=== PATIENT | male | born 1945 | race Caucasian/White ===

== ENCOUNTER 2024-06-15 13:19 | Emergency (ER) | payer OTHER ==
[2024-06-15] MEDS ORDERED: NA CHLORIDE 0.9% 100 ML ONE (13:31)
[2024-06-15] MEDS ORDERED: ALBUTEROL 2.5 MG/3 ML NEB SOL ONE (13:31)
[2024-06-15] MEDS ORDERED: CEFAZOLIN SODIUM 2 GM/VIAL ONE (13:31)
[2024-06-15] MEDS ORDERED: IPRATROPIUM BROM 0.5MG/2.5ML ONE (13:31)
[2024-06-15 14:01] LABS: Absolute Lymphocytes (CBC) 0.6 K/uL (0.7-4.9); Absolute Monocytes 1.3 K/uL (0.1-1.3); Absolute Neutrophil 5.3 K/uL (1.8-8.0); Basophils % 0.1 % (0-1.3); Eosinophils % 0.1 % (0-4.4); Hematocrit 42.1 % (39.6-49.0); Hemoglobin 14.1 g/dL (13.6-17.9); Lymphocytes % 8.9 % (15.3-44.8); MCH 34.5 pg (27.0-35.0); MCHC 33.6 g/dL (32.0-36.0); MCV 102.7 fL (80-100); MPV 9.7 fL (7.6-11.3); Monocytes % 17.8 % (3.3-12.3); Neutrophils % 73.1 % (41.7-73.7); Platelets 96 thou/uL (152-406); Red Cell Distribution Width 15.5 % (12.1-15.2)
[2024-06-15 14:19] LABS: Albumin 2.6 g/dL (3.4-5.0); Albumin/Globulin Ratio 0.6 (1.1-1.8); Anion Gap 10.9 mEq/L (5.0-15.0); Bilirubin Total 2.8 mg/dL (0.2-1.0); Globulin 4.2 g/dL (2.3-3.5); Potassium 3.9 mEq/L (3.5-5.1); Protein, Total 6.8 g/dL (6.4-8.2); Troponin High Sensitivity 10.5 pg/mL (<58.9)
--- NOTE | 2024-06-15 14:33 | RAD REPORT ---
EXAMINATION: ONE VIEW CHEST XR CLINICAL INDICATION: Male, 78 years old.,COUGH TECHNIQUE: Frontal chest projection is submitted. Examination is limited by patient positioning and t echnique. COMPARISON: 03/23/2024 FINDINGS: The lungs are well inflated. Bilateral costophrenic angle blunting suggesting small effusions. Underl shani subsegmental airspace opacities are stable. Appearance is stable. No pneumothorax. The heart is normal in size. IMPRESSION: Stable findings as above.
[2024-06-15] MEDS ORDERED: IBUPROFEN 200 MG TAB PO ONE (14:35)
[2024-06-15 14:42] LABS: Blood Morphology Comment NOT SEEN (NOT SEEN); Platelet Estimate DECR; White Blood Cell Scan OK (OK)
[2024-06-15] MEDS ORDERED: NA CHLORIDE 0.9% 1,000 ML ONE (14:43)
--- NOTE | 2024-06-15 15:02 | RAD REPORT ---
EXAM: CT CHEST, ABDOMEN AND PELVIS WITHOUT CONTRAST CLINICAL INDICATION: Male, 78 years old. [facility] MAIN ABD PAIN NO CONTRAST Bed Name: 5 TECHNIQUE: CT chest, abdomen and pelvis was performed, without IV contrast, as per department protoco l. Axial, sagittal and coronal reconstructions were obtained. One or more of the following dose reduction techniques were used: Automated exposure control, adjustment of the mA and/or kV according to the patient size, and/or iterative reconstruction. Unless otherwise specified, incidental findings do not require dedicated imaging follow-up. COMPARISON: 05/29/2024 and 03/20/2024 FINDINGS: The lack of intravenous contrast limits the sensitivity of this exam for evaluation of solid visceral organs, vascular structures, and retroperitoneum. Chest: LOWER NECK/CHEST WALL: Visualized thyroid gland and soft tissues are normal. LUNGS AND AIRWAYS: Airways are clear.Left basilar subsegmental airspace opacification with aortogram, and other areas of platelike peripheral atelectasis/scarring, stable. No suspicious nodules. PLEURA: Small bilateral pleural effusions larger on the left. No pneumothorax. Hemidiaphragms are nor merly positioned. MEDIASTINUM AND LYMPH NODES: No mediastinal mass or fluid collection. Normal size mediastinal, hilar, and axillary lymph nodes. Moderate hiatal hernia. Moderate lower esophageal varices. Ovoid cystic lesion in the posterior mediastinum right of midline, measuring 3.4 x 2.8 cm, stable. THORACIC AORTA: Normal caliber and configuration. PULMONARY ARTERIES: Normal caliber. HEART: Prosthetic aortic valve place. Left chest wall pacer/AICD present. Abdomen/Pelvis LIVER: Normal in size. Nodular contour and relative left lobe hypertrophy again seen. No focal lesion . Varicosities along the left sphenoid renal region and epigastrium are again appreciated. Umbilical vein recanalization. GALLBLADDER/BILE DUCTS: Marked gallbladder distention, with a 1.6 cm mineralized calculus near the ne ck, and some layering hyperdense material near the fundus. Pericholecystic fluid and mild gallbladder wall thickening.. PANCREAS: No mass, ductal dilation, or callie-pancreatic fluid. SPLEEN: Normal size. No focal lesion. ADRENALS: Normal; no mass. KIDNEYS AND URETERS: Normal size and contour. No hydronephrosis. GASTROINTESTINAL TRACT: Stomach is non-dilated. Small bowel has normal course and caliber. No colonic wall thickening or pericolonic inflammatory changes. PERITONEUM: Mild free fluid throughout both flanks. LYMPH NODES: No lymphadenopathy. ABDOMINAL AORTA AND OTHER VESSELS: Normal caliber aorta and IVC. URINARY BLADDER: Normal contour. REPRODUCTIVE ORGANS: No pathologic process. MUSCULOSKELETAL: Stable compression deformities at T12, L2, and L4. No other acute or suspicious osse ous abnormalities. ADDITIONAL FINDINGS: Penile implant in place. IMPRESSION: Cholelithiasis with diffuse gallbladder wall thickening and prominent distention. Please correlate cl inically for evidence of acute cholecystitis. New mild free ascites. Stigmata of cirrhosis and portal hypertension, trace bilateral effusions and underlying airspace opac ification suggesting atelectasis, and other incidental findings, are stable.
--- NOTE | 2024-06-15 15:24 | EDPHYS ---
Physician Documentation [facility] Name: Gigi Madison Jr Age: 78 yrs Sex: Male : 1945 Arrival Date: 06/15/2024 Time: 13:19 Bed 5 Private MD: ED Physician Al Frye HPI: 06/15 13:44 This 78 yrs old Male presents to ER via Ambulatory with complaints of Dizziness, sp3 General Weakness, Cough. 13:44 78-year-old male with history of liver cirrhosis with patient Dr. Thompson presents to the sp3 ED with chief complaint cough and generalized weakness. Patient had some epigastric pain last week and now has developed into more upper respiratory symptoms. Dr. Thompson is concerned about pneumonia and has asked us to admit him for further workup and IV antibiotics. Patient denies any chest pain, back pain, lower abdominal pain, rash, syncope, focal neurological deficit, fever, or any other signs or symptoms on ROS at this time.. Historical: - Allergies: 13:37 No Known Allergies; db - PMHx: 13:37 allergies; Cirrhosis of liver; CARDIAC; db - PSHx: 13:37 PACEMAKER; db - Immunization history:: Adult Immunizations unknown. - Infectious Disease History:: Denies. - Social history:: Smoking status: Patient denies any tobacco usage or history of. ROS: 13:45 Constitutional: Negative for fever, chills, and weight loss, Eyes: Negative for injury, sp3 pain, redness, and discharge, Neck: Negative for injury, pain, and swelling, Cardiovascular: Negative for chest pain, palpitations, and edema, Back: Negative for injury and pain, MS/Extremity: Negative for injury and deformity, Skin: Negative for injury, rash, and discoloration, Neuro: Negative for headache, weakness, numbness, tingling, and seizure, Psych: Negative for depression, anxiety, suicide ideation, homicidal ideation, and hallucinations, Allergy/Immunology: Negative for hives, rash, and allergies, Endocrine: Negative for neck swelling, polydipsia, polyuria, polyphagia, and marked weight changes, Hematologic/Lymphatic: Negative for swollen nodes, abnormal bleeding, and unusual bruising, 13:45 All other systems are negative, Exam: 13:45 Constitutional: This is a well developed, well nourished patient who is awake, alert, sp3 and in no acute distress. Head/Face: Normocephalic, atraumatic. Eyes: Pupils equal round and reactive to light, extra-ocular motions intact. Lids and lashes normal. Conjunctiva and sclera are non-icteric and not injected. Cornea within normal limits. Periorbital areas with no swelling, redness, or edema. ENT: Nares patent. No nasal discharge, no septal abnormalities noted. External auditory canals are clear. Oropharynx with no redness, swelling, or masses, exudates, or evidence of obstruction, uvula midline. Mucous membranes moist. Neck: Trachea midline, no thyromegaly or masses palpated, and no cervical lymphadenopathy. Supple, full range of motion without nuchal rigidity, or vertebral point tenderness. No Meningismus. Chest/axilla: Normal chest wall appearance and motion. Nontender with no deformity. No lesions are appreciated. Cardiovascular: Regular rate and rhythm with a normal S1 and S2. No gallops, murmurs, or rubs. Normal PMI, no JVD. No pulse deficits. Back: No spinal tenderness. No costovertebral tenderness. Full range of motion. Skin: Warm, dry with normal turgor. Normal color with no rashes, no lesions, and no evidence of cellulitis. MS/ Extremity: Pulses equal, no cyanosis. Neurovascular intact. Full, normal range of motion. Neuro: Awake and alert, GCS 15, oriented to person, place, time, and situation. Cranial nerves II-XII grossly intact. Motor strength 5/5 in all extremities. Sensory grossly intact. Cerebellar exam normal. Normal gait. Psych: Awake, alert, with orientation to person, place and time. Behavior, mood, and affect are within normal limits. 15:29 ECG was reviewed by the Attending Physician. EKG demonstrates normal sinus rhythm 87 sp3 bpm with scattered PVC and demand atrial pacer and nonspecific diffuse ST's ST changes. Vital Signs: 13:36 BP 101 / 69; Pulse 76; Resp 18; Temp 100.7; Pulse Ox 98% on R/A; Weight 83.46 kg; db Height 6 ft. 0 in. ; 16:04 BP 99 / 74; Pulse 72; Resp 18; Temp 97.6(A); Pulse Ox 99% on R/A; qf 16:38 BP 101 / 77; Pulse 80; Resp 17; Pulse Ox 98% on R/A; rs5 17:43 BP 123 / 71; Pulse 53; Resp 16; Temp 98.6; Pulse Ox 100% on R/A; qf 13:36 Body Mass Index 24.95 (83.46 kg, 182.88 cm) db MDM: 13:23 Patient medically screened. sp3 13:46 Data reviewed: vital signs, nurses notes, lab test result(s), EKG, radiologic studies. sp3 ED course: 78-year-old male with generalized weakness and now cough. Differential diagnosis includes pneumonia, bronchitis, CHF, ACS, biliary pathology that is worsening, among others. Workup will include chest x-ray, EKG, CT scan of the abdomen pelvis noncontrast and general labs. Disposition will be admission to Dr. Thompson service and cefepime will also be started.. 15:21 ED course: Believe patient's presentation is likely due to cholecystitis given sp3 gallbladder wall thickening, distended gallbladder with cholelithiasis and right upper quadrant abdominal pain on palpation. Given patient's extensive cirrhosis history and all of his physicians being at [facility], he would like to be treated there and we will transfer him there for higher level of care due to GI not being available here.. 06/15 13:24 Order name: Blood Culture Adult (2) 3 06/15 13:24 Order name: CBC with Diff; Complete Time: 15:07 sp3 06/15 13:24 Order name: CMP; Complete Time: 14:35 3 06/15 13:24 Order name: Lactate w/ 2H reflex if indic.; Complete Time: 14:35 3 06/15 13:24 Order name: Troponin High Sensitivity; Complete Time: 14:35 sp3 06/15 14:43 Order name: CBC Smear Scan; Complete Time: 15:07 EDMS 06/15 16:35 Order name: Ghost Lactate-NO COLLECT Timer EDMS 06/15 17:50 Order name: Lactate Sepsis 2 HR Follow-up EDMS 06/15 13:24 Order name: Chest Single View XRAY; Complete Time: 14:35 3 06/15 14:09 Order name: Chest Abd Pelvis Wo Con; Complete Time: 15:07 EDMS 06/15 13:24 Order name: Cardiac monitoring; Complete Time: 13:40 sp3 06/15 13:24 Order name: EKG - Nurse/Tech; Complete Time: 13:40 sp3 06/15 13:24 Order name: IV Saline Lock - Large Bore; Complete Time: 14:26 sp3 06/15 13:24 Order name: Labs collected and sent; Complete Time: 14:26 sp3 06/15 13:24 Order name: O2 Per Protocol; Complete Time: 13:41 sp3 06/15 13:24 Order name: O2 Sat Monitoring; Complete Time: 13:41 sp3 06/15 13:24 Order name: Vital Signs; Complete Time: 13:41 sp3 Administered Medications: 13:34 CANCELLED (): DuoNeb Nebulize (3:1) (2.5 mg - 0.5 mg) 3 ml Nebulizer once sp3 14:00 Drug: Cefepime IVPB 2 grams IVPB at 200 ml/hr once over 30 mins; (mix in NS 100 mL) rs5 Route: IVPB; Rate: 200 ml/hr; Infused Over: 30 mins; Site: right antecubital; 14:40 Drug: Ibuprofen PO 600 mg PO once Route: PO; qf 16:04 Follow up: Response: Temperature is decreased qf 17:49 Follow up: Response: No change in condition qf 14:50 Drug: NS 0.9% IV 1000 ml IV at 1 bolus Per protocol; 1000 mL bolus Route: IV; Rate: 1 rs5 bolus; Site: right antecubital; 16:30 Follow up: IV Status: Completed infusion qf 17:48 Follow up: Response: No adverse reaction qf Disposition Summary: 06/15/24 15:23 Transfer Ordered Notes: Transfer Location: [facility] sp3 Reason: Higher level of care sp3 Condition: Stable sp3 Problem: an acute exacerbation sp3 Symptoms: have worsened sp3 Accepting Physician: [facility] TBD(06/15/24 17:52) qf Diagnosis - Cholecystitis, liver cirrhosis sp3 Forms: - Medication Reconciliation Form sp3 - SBAR form sp3 Signatures: Dispatcher [employer] Al Gomez MD MD sp3 Saba Stapleton RN RN Clay Roberto RN RN rs5 Judith Reynaga RN RN qf Corrections: (The following items were deleted from the chart) 13:34 13:24 DuoNeb Nebulize (3:1) (2.5 mg - 0.5 mg) 3 ml Nebulizer once ordered. sp3 sp3 13:34 13:34 Abdomen Pelvis Wo Con+CT.RAD.BRZ ordered. EDMS EDMS 17:52 15:23 [facility] TBD sp3 qf
--- NOTE | 2024-06-15 15:24 | ER ---
Nurse's Notes [facility] Name: Gigi Madison Jr Age: 78 yrs Sex: Male : 1945 Arrival Date: 06/15/2024 Time: 13:19 Bed 5 Private MD: Diagnosis: Cholecystitis, liver cirrhosis Presentation: 06/15 13:36 Chief complaint: Patient states: WEAKNESS, COUGH, PNEUMONIA SYMPTOMS. SENT BY DR. MICHAEL duarte TO ER FOR ADMISSION. HX OF POPPING A RIB RECENTLY. Coronavirus screen: Client denies travel out of the [place] in the last 14 days. At this time, the client does not indicate any symptoms associated with coronavirus-19. Ebola Screen: Patient negative for fever greater than or equal to 101.5 degrees Fahrenheit, and additional compatible Ebola Virus Disease symptoms Patient denies exposure to infectious person. Patient denies travel to an Ebola-affected area in the 21 days before illness onset. No symptoms or risks identified at this time. Initial Sepsis Screen: Does the patient meet any 2 criteria? No. Patient's initial sepsis screen is negative. Does the patient have a suspected source of infection? No. Patient's initial sepsis screen is negative. Risk Assessment: Do you want to hurt yourself or someone else? Patient reports no desire to harm self or others. Onset of symptoms was June 15, 2024. 13:36 Method Of Arrival: Ambulatory 13:36 Acuity: HUMZA 2 db Triage Assessment: 13:37 General: Appears in no apparent distress. comfortable, Behavior is calm, cooperative. db Pain:. Neuro: Level of Consciousness is awake, alert, obeys commands, Oriented to person, place, time, situation. Respiratory: Reports cough that is Airway is patent Respiratory effort is even, unlabored, Respiratory pattern is regular, symmetrical. Historical: - Allergies: 13:37 No Known Allergies; db - PMHx: 13:37 allergies; Cirrhosis of liver; CARDIAC; db - PSHx: 13:37 PACEMAKER; db - Immunization history:: Adult Immunizations unknown. - Infectious Disease History:: Denies. - Social history:: Smoking status: Patient denies any tobacco usage or history of. Screenin:40 [facility] ED Fall Risk Assessment (Adult) History of falling in the last 3 months, qf including since admission No falls in past 3 months (0 pts) Confusion or Disorientation No (0 pts) Intoxicated or Sedated No (0 pts) Impaired Gait No (0 pts) Mobility Assist Device Used No (0 pt) Altered Elimination No (0 pt) Score/Fall Risk Level 0 - 2 = Low Risk. Abuse screen: Denies threats or abuse. Denies injuries from another. Nutritional screening: No deficits noted. Tuberculosis screening: No symptoms or risk factors identified. Assessment: 13:30 General: Appears in no apparent distress. comfortable, slender, well groomed, well qf developed. 14:06 Neuro: No deficits noted. Cardiovascular: No deficits noted. Respiratory: qf Parent/caregiver reports the patient having cough that is non-productive. GI: No deficits noted. 17:29 Reassessment: Report given to Danitza LANDERS at [place], Jonathan. qf 17:45 Reassessment: Patient escorted out of facility with [facility] at this time. qf Vital Signs: 13:36 BP 101 / 69; Pulse 76; Resp 18; Temp 100.7; Pulse Ox 98% on R/A; Weight 83.46 kg; db Height 6 ft. 0 in. ; 16:04 BP 99 / 74; Pulse 72; Resp 18; Temp 97.6(A); Pulse Ox 99% on R/A; qf 16:38 BP 101 / 77; Pulse 80; Resp 17; Pulse Ox 98% on R/A; rs5 17:43 BP 123 / 71; Pulse 53; Resp 16; Temp 98.6; Pulse Ox 100% on R/A; qf 13:36 Body Mass Index 24.95 (83.46 kg, 182.88 cm) db ED Course: 13:23 Patient arrived in ED. im 13:23 Al Frye MD is Attending Physician. sp3 13:28 Misael Rubio, RN is Primary Nurse. bp 13:30 Inserted saline lock: 20 gauge in right antecubital area, using aseptic technique. qf Blood collected. Flushed with 10 mL NS. 13:37 Triage completed. db 13:37 Arm band placed on Patient placed in an exam room. db 13:54 Chest Single View XRAY In Process Unspecified. EDMS 14:10 CMP Sent. qf 14:10 Lactate w/ 2H reflex if indic. Sent. qf 14:10 Blood Culture Adult (2) Sent. qf 14:11 Troponin High Sensitivity Sent. qf 14:15 Chest Abd Pelvis Wo Con In Process Unspecified. EDMS 14:41 Patient has correct armband on for positive identification. Placed in gown. Bed in low qf position. Call light in reach. Side rails up X 1. Adult w/ patient. Provided Education on: ER procedures. 15:22 initiated a transfer with Gibson from the [facility] at the request of the patient. 16:02 administrative approval given by Gibson Rebollar/ patient has been accepted to [facility] [id number]/ Dr. Hilario Hewitt has accepted the patient in transfer/ report to be called to [phone]. Administered Medications: 13:34 CANCELLED (): DuoNeb Nebulize (3:1) (2.5 mg - 0.5 mg) 3 ml Nebulizer once sp3 14:00 Drug: Cefepime IVPB 2 grams IVPB at 200 ml/hr once over 30 mins; (mix in NS 100 mL) rs5 Route: IVPB; Rate: 200 ml/hr; Infused Over: 30 mins; Site: right antecubital; 14:40 Drug: Ibuprofen PO 600 mg PO once Route: PO; qf 16:04 Follow up: Response: Temperature is decreased qf 17:49 Follow up: Response: No change in condition qf 14:50 Drug: NS 0.9% IV 1000 ml IV at 1 bolus Per protocol; 1000 mL bolus Route: IV; Rate: 1 rs5 bolus; Site: right antecubital; 16:30 Follow up: IV Status: Completed infusion qf 17:48 Follow up: Response: No adverse reaction qf Medication: 14:41 VIS not applicable for this client. qf Outcome: 15:23 ER care complete, transfer ordered by . sp3 17:43 Transferred by ground EMS [facility]. to [facility], Transfer form qf completed. X-rays sent w/ patient. 17:44 Condition: stable qf 17:44 Discharge instructions given to patient, Instructed on the need for transfer, Demonstrated understanding of 17:52 Patient left the ED. qf Signatures: Dispatcher [employer] EDMisael Tavares RN RN Caro Hickey Setul, MD MD sp3 Saba Stapleton, RN RN db Clay Ye RN RN rs5 Cheyenne Mendez Quoterris S, RN RN qf
[2024-06-15 18:01] VITALS: BP 123/71; TEMP 98.6; O2SAT 100
--- NOTE | 2024-06-16 11:54 | EKG ---
Test Date: 2024-06-15 Test Time: 13:37:30 General Operations Agent: BP MEASUREMENT RESULTS: Intervals: Rate: 86 DE: 134 QRSD: 88 QT: 360 QTc: 430 Adkins: P: 28 DE: 134 QRS: 64 T: 69 INTERPRETIVE STATEMENTS: Sinus rhythm with premature supraventricular complexes and with frequent premature ventricular complexes Otherwise normal ECG Compared to ECG 03/20/2024 16:07:45 Atrial premature complex(es) now present Atrial fibrillation no longer present Electronically Signed On 06-16-24 11:51:54 CDT by Morgan Sanchez
== END 2024-06-15 17:52 | disposition short-term general hospital (02) ==
LOC: ER 13:19
DX: K81.9 Cholecystitis, unspecified (principal); K74.60 Unspecified cirrhosis of liver; R05.9 Cough, unspecified; Z95.0 Presence of cardiac pacemaker
CPT/HCPCS: 96361; 93005; 87040 ×2; 85025; 36415; 83605 ×2; 84484; 80053; 71250; 74176; 71045; 96374; 99285; J7613; J7644; J7030

== ENCOUNTER 2024-07-04 13:34 | Emergency (ER) | payer OTHER ==
--- NOTE | 2024-07-04 14:06 | EDPHYS ---
Physician Documentation [facility] Name: Gigi Madison Jr Age: 78 yrs Sex: Male : 1945 Arrival Date: 07/04/2024 Time: 13:34 Bed 6 Private MD: ED Physician Aroldo Romero HPI: 07/04 13:54 This 78 yrs old Male presents to ER via Unassigned with complaints of Abdominal Pain cp and Nausea. 13:54 The patient presents with abdominal pain in the right upper quadrant, abdominal cp distention in the upper abdomen. Onset: The symptoms/episode began/occurred this morning. Associated signs and symptoms: Pertinent positives: nausea. The symptoms are described as constant. 13:55 Patient is an 78-year-old male with PMHX significant for liver failure who presents to the emergency department via EMS with complaints of abdominal pain and nausea. Patient reports he was recently discharged from [facility] couple days ago with a history of a ruptured gallbladder and is currently being treated with antibiotics. Patient reports that surgery was not advised and that the treatment was going to be antibiotics but patient reports today abdominal pain is worse and so he came to the emergency department. Historical: - Allergies: 14:20 No Known Allergies; tl4 - Home Meds: 14:20 astelin [Active]; Nasacort Nasal [Active]; tl4 - PMHx: 14:20 cirrhosis of liver; cardiac; allergies; tl4 - PSHx: 14:20 pacemaker; tl4 - Immunization history:: Adult Immunizations unknown. - Infectious Disease History:: Denies. - Social history:: Smoking status: Patient denies any tobacco usage or history of. ROS: 13:58 Abdomen/GI: Positive for abdominal pain, nausea, Negative for diarrhea, constipation, cp black/tarry stool, rectal bleeding, 13:58 Cardiovascular: Negative for chest pain, edema, palpitations, cp 13:58 Eyes: Negative for injury, pain, redness, and discharge, cp 13:58 Constitutional: Negative for body aches, chills, fever, poor PO intake, 13:58 Respiratory: Negative for cough, shortness of breath, wheezing, 13:58 Neuro: Negative for altered mental status, dizziness, headache, numbness, weakness, 13:58 All other systems are negative, Exam: 14:00 Constitutional: The patient appears in no acute distress, alert, awake, cp non-diaphoretic, non-toxic, well developed, well nourished, uncomfortable, 14:00 Head/Face: Normocephalic, atraumatic. cp 14:00 Eyes: Periorbital structures: appear normal, Conjunctiva: normal, no exudate, no injection, Sclera: icterus, is present, Lids and lashes: appear normal, bilaterally, 14:00 ENT: External ear(s): are unremarkable, Nose: is normal, Mouth: Lips: moist, Oral mucosa: pink and intact, moist, Posterior pharynx: Airway: no evidence of obstruction, patent, 14:00 Chest/axilla: Inspection: normal, 14:00 Cardiovascular: Rate: tachycardic, Rhythm: regular, JVD: is not appreciated, 14:00 Respiratory: the patient does not display signs of respiratory distress, Respirations: normal, no use of accessory muscles, no retractions, labored breathing, is not present, Breath sounds: are clear throughout, no decreased breath sounds, no stridor, no wheezing, 14:00 Abdomen/GI: Inspection: distension, that is moderate, Bowel sounds: active, all quadrants, Palpation: abdomen is soft and non-tender, in all quadrants, severe abdominal tenderness, in the right upper quadrant, voluntary guarding, is elicited in the right upper quadrant, 14:00 Skin: Appearance: Color: jaundiced, 14:00 Neuro: Orientation: to person, place \T\ time. Mentation: is normal, Motor: moves all fours, no focal deficits, Vital Signs: 13:50 BP 100 / 84; Pulse 106; Resp 19; Temp 97.9(O); Pulse Ox 97% on R/A; Weight 86.18 kg; tl4 Height 6 ft. 0 in. ; Pain 8/10; 13:50 Body Mass Index 25.77 (86.18 kg, 182.88 cm) tl4 13:50 Pain Scale: Adult tl4 MDM: 13:50 Medical Screening Exam initiated sd2 14:00 Differential diagnosis: cholecystitis, Cholelithiasis, gastritis, non-specific abd cp pain, pancreatitis, Peptic Ulcer Disease, Perf. Duodenal Ulcer, Perf. Gastric Ulcer. 14:06 Data reviewed: vital signs, nurses notes, and as a result, I will discharge patient. cp 14:06 Refusal of service: The patient/guardian displays adequate decision making capability cp and despite a detailed discussion of alternatives, benefits, risks, and consequences refuses: CT Scan, all lab tests. ED course: vss. patient and family request discharge to home and will f/u worsening symptoms. 07/04 13:53 Order name: Accucheck 07/04 13:53 Order name: Cardiac monitoring 07/04 13:53 Order name: EKG - Nurse/Tech 07/04 13:53 Order name: IV Saline Lock - Large Bore 07/04 13:53 Order name: Labs collected and sent 07/04 13:53 Order name: O2 Per Protocol 07/04 13:53 Order name: O2 Sat Monitoring 07/04 13:53 Order name: Vital Signs cp Administered Medications: No medications were administered Disposition Summary: 07/04/24 14:06 Discharge Ordered Notes: Location: Home cp Problem: an ongoing problem cp Symptoms: are unchanged cp Condition: Stable cp Diagnosis - Upper abdominal pain, unspecified cp - Nausea cp Followup: cp - With: Emergency Department - When: As needed - Reason: Worsening of condition Discharge Instructions: - Discharge Summary Sheet cp - Abdominal Pain, Adult cp - Nausea, Adult cp Forms: - Medication Reconciliation Form cp - Antibiotic Education cp - Prescription Opioid Use cp - Patient Portal Instructions cp - Leadership Thank You Letter cp Signatures: Dispatcher [employer] [facility] Aroldo Chacon PA PA cp Liza Harding MD MD sd2 Michel Johnson RN RN tl4 Corrections: (The following items were deleted from the chart) 13:53 13:53 Chest Single View+RAD.RAD.BRZ ordered. [facility] EDME 14:05 13:55 Patient is an 78-year-old male who presents to the emergency department via EMS cp with complaints of abdominal pain and nausea. Patient reports he was recently discharged from [facility] couple days ago with a history of a ruptured gallbladder and is currently being treated with antibiotics. Patient reports that surgery was not advised and that the treatment was going to be antibiotics but patient reports today abdominal pain is worse and so he came to the emergency department. cp
--- NOTE | 2024-07-04 14:44 | ER ---
Nurse's Notes [facility] Name: Gigi Madison Jr Age: 78 yrs Sex: Male : 1945 Arrival Date: 07/04/2024 Time: 13:34 Bed 6 Private MD: Diagnosis: Upper abdominal pain, unspecified;Nausea Presentation: 07/04 13:50 Chief complaint: Patient states: Pt c/o progressively worsening middle abdominal pain, tl4 nausea, vomiting, and diarrhea since Sunday. Pt recently discharged from [facility] after 2.5 week admission for punctured gall bladder. Pt requested to be transported to [facility]. Coronavirus screen: At this time, the client does not indicate any symptoms associated with coronavirus-19. Ebola Screen: No symptoms or risks identified at this time. Initial Sepsis Screen: Does the patient meet any 2 criteria? HR > 90 bpm. No. Patient's initial sepsis screen is negative. Does the patient have a suspected source of infection? No. Patient's initial sepsis screen is negative. Risk Assessment: Do you want to hurt yourself or someone else? Patient reports no desire to harm self or others. Onset of symptoms is unknown. 13:50 Method Of Arrival: EMS: [facility] tl4 13:50 Acuity: HUMZA 3 tl4 Triage Assessment: 14:21 General: Appears distressed, uncomfortable, Behavior is cooperative. Pain: Complains of tl4 pain in abdomen. EENT: No signs and/or symptoms were reported regarding the EENT system. Neuro: Level of Consciousness is awake, alert, obeys commands, Oriented to person, place, time, situation, Moves all extremities. Weakness. Cardiovascular: Capillary refill < 3 seconds Patient's skin is warm and dry. Respiratory: Airway is patent Respiratory effort is even, unlabored, Respiratory pattern is regular, symmetrical, Breath sounds are clear bilaterally. GI: Reports lower abdominal pain, upper abdominal pain, diarrhea, nausea, vomiting. : No signs and/or symptoms were reported regarding the genitourinary system. Derm: No signs and/or symptoms reported regarding the dermatologic system. Musculoskeletal: No signs and/or symptoms reported regarding the musculoskeletal system. Historical: - Allergies: 14:20 No Known Allergies; tl4 - Home Meds: 14:20 astelin [Active]; Nasacort Nasal [Active]; tl4 - PMHx: 14:20 cirrhosis of liver; cardiac; allergies; tl4 - PSHx: 14:20 pacemaker; tl4 - Immunization history:: Adult Immunizations unknown. - Infectious Disease History:: Denies. - Social history:: Smoking status: Patient denies any tobacco usage or history of. Screenin:22 [facility] ED Fall Risk Assessment (Adult) History of falling in the last 3 months, tl4 including since admission Yes- single mechanical fall (1 pt) Confusion or Disorientation No (0 pts) Intoxicated or Sedated No (0 pts) Impaired Gait Yes (1 pt) Mobility Assist Device Used No (0 pt) Altered Elimination No (0 pt) Score/Fall Risk Level 0 - 2 = Low Risk Oriented to surroundings, Maintained a safe environment, Educated pt \T\ family on fall prevention, incl call for assistance when getting out of bed, Assessed \T\ reinforced patient's understanding of fall precautions. Abuse screen: Denies threats or abuse. Denies injuries from another. Nutritional screening: No deficits noted. Tuberculosis screening: No symptoms or risk factors identified. Assessment: 14:15 Reassessment: Pt is supposed to be seen in [facility]. Pt son is going to [facility] transport him to the other hospital by POV. Pt understands risks of not being transferred by EMS with ongoing monitoring. Pt discharged to go to other facility via POV with and son. and son advised to call for EMS if pt has any medical events on the way to the other facility. Vital Signs: 13:50 BP 100 / 84; Pulse 106; Resp 19; Temp 97.9(O); Pulse Ox 97% on R/A; Weight 86.18 kg; tl4 Height 6 ft. 0 in. ; Pain 8/10; 13:50 Body Mass Index 25.77 (86.18 kg, 182.88 cm) tl4 13:50 Pain Scale: Adult 4 ED Course: 13:50 Patient arrived in ED. mb9 13:50 Liza Harding MD is Attending Physician. sd2 13:52 Aroldo Chacon PA is PHCP. cp 13:52 Aroldo Romero MD is Attending Physician. cp 14:20 Triage completed. tl4 14:22 Radiology exam delayed due to pt not in room. rs4 14:22 Arm band placed on right wrist. tl4 14:23 Patient has correct armband on for positive identification. Placed in gown. Bed in low tl4 position. Call light in reach. Side rails up X2. Adult w/ patient. Provided Education on: ed process, call ramirez at bedside. Client placed on continuous cardiac and pulse oximetry monitoring. NIBP monitoring applied. monitoring specialist on. Door closed. Noise minimized. Lights dimmed. Moved to private room. Warm blanket given. 14:25 No provider procedures requiring assistance completed. Patient did not have IV access tl4 during this emergency room visit. Administered Medications: No medications were administered Medication: 14:22 VIS not applicable for this client. tl4 Outcome: 14:06 Discharge ordered by . jacobo 14:43 Patient left the ED. deidre 15:00 Discharged to [facility] via POV tl4 15:00 Condition: stable 15:00 Discharge instructions given to patient, family, Instructed on discharge instructions, follow up and referral plans. Demonstrated understanding of instructions, follow-up care, Signatures: Aroldo Chacon, Liza Olivera cp, MD MD sd2 Bita Oliveira RN RN mb9 Gladis Cid rs4 Michel Johnson RN RN tl4
[2024-07-05 00:40] VITALS: BP 100/84; TEMP 97.9; O2SAT 97
== END 2024-07-04 14:43 | disposition home or self-care (01) ==
LOC: ER 13:34
DX: R10.11 Right upper quadrant pain (principal); R11.0 Nausea; Z95.0 Presence of cardiac pacemaker
CPT/HCPCS: 99284